=== PATIENT | male | born 1990 | race Caucasian/White ===

== ENCOUNTER → 2020-09-24 | Outpatient (CLI) | payer BC ==
[~2020-09-24] MED LIST: FEXO1TAB29 PO
== END | disposition home or self-care (01) ==
LOC: STAR 13:37
PROVIDERS: ATTEND Otolaryngology
DX: Z01.812 Encounter for preprocedural laboratory examination (principal); Z20.828 Contact with and (suspected) exposure to other viral communicable diseases; J32.4 Chronic pansinusitis
CPT/HCPCS: 36415; 87635

== ENCOUNTER 2020-09-29 08:05 | Day surgery (SDC) | payer BC ==
[~2020-09-29] VITALS: Ht 190.5 cm; Wt 128.0 kg
[~2020-09-29 08:05] MED LIST changes: +BACITRACIN 50,000 UNIT ONE; +BACITRACIN OINT 500U/GM, 15 GM ONE; +EPINEPHRINE 1 MG/ML, 1ML ONE; +EPINEPHRINE TOPICAL SOLN 1 MG/ML, 30ML ONE; +FLUORESCEIN SODIUM 500 MG/5 ML ONE; +LIDOCAINE/PF 1%, 30ML ONE; +OXYMETAZOLINE NASAL SPRAY 0.05%,30ML ONE
[2020-09-29] MEDS ORDERED: FENTANYL PF 250 MCG/5ML ONE ×2 (08:20→10:59)
[2020-09-29] MEDS ORDERED: MIDAZOLAM 1 MG/ML, 2ML ONE (08:20)
[2020-09-29] MEDS ORDERED: GLYCOPYRROLATE 0.2MG/1ML, 5ML ONE (08:23)
[2020-09-29] MEDS ORDERED: ROCURONIUM 10MG/ML,5ML ONE (08:23)
[2020-09-29] MEDS ORDERED: PROPOFOL 10 MG/ML, 20ML ONE (08:23)
[2020-09-29] MEDS ORDERED: NEOSTIGMINE 1 MG/ML, 10ML ONE (08:23)
[2020-09-29] MEDS ORDERED: CEFAZOLIN 1,000 MG ONE ×2 (08:23→10:56)
[2020-09-29 08:39] VITALS: BP 135/91
[2020-09-29] MEDS ORDERED: CHLORHEXIDINE 15 ML UDC ONE (08:45)
[2020-09-29] MEDS ORDERED: CHLORHEXIDINE 15 ML UDC MM ONE (09:00)
[2020-09-29] MEDS ORDERED: LIDOCAINE-MPF 1%, 2ML INFIL ONE (09:00)
[2020-09-29] MEDS ORDERED: LACTATED RINGERS 1,000 ML IV SCH (09:00)
[2020-09-29] MEDS ORDERED: HYDROmorphone 1 MG/ML, 1ML INJ IVPush PRN (10:30)
[2020-09-29] MEDS ORDERED: ACETAMINOPHEN 325 MG TABLET PO PRN (10:30)
[2020-09-29] MEDS ORDERED: FENTANYL PF 100 MCG/2ML IV PRN (10:30)
[2020-09-29] MEDS ORDERED: OXYcodone 5 MG/5 ML ORAL.SOL UDC PO PRN (10:30)
[2020-09-29] MEDS ORDERED: MEPERIDINE/PF 25MG/0.5ML IVPush PRN (10:30)
[2020-09-29] MEDS ORDERED: LABETALOL 5MG/ML, 20ML IV PRN (10:30)
[2020-09-29] MEDS ORDERED: HALOPERIDOL 5 MG/ML IV PRN (10:30)
[2020-09-29] MEDS ORDERED: morphine SULFATE 10 MG/ML, 1ML IVPush PRN (10:30)
[2020-09-29] MEDS ORDERED: PROMETHAZINE 25 MG/ML, 1ML IVPush PRN (10:30)
[2020-09-29] MEDS ORDERED: hydrALAzine 20 MG/ML, 1ML IV PRN (10:30)
[2020-09-29] MEDS ORDERED: DEXAMETHASONE 4 MG/ML, 1ML ONE (10:40)
[2020-09-29] MEDS ORDERED: ONDANSETRON 2MG/ML, 2ML ONE (10:40)
[2020-09-29] MEDS ORDERED: LIDOCAINE 1%-EPI 1:100K, 30ML INFIL ONE (11:00)
[2020-09-29] MEDS ORDERED: FENTANYL PF 100 MCG/2ML ONE (11:37)
[2020-09-29] MEDS ORDERED: BACITRACIN OINT 500U/GM, 15 GM TP ONE (11:40)
[2020-09-29] MEDS ORDERED: OXYcodone 5 MG/5 ML ORAL.SOL UDC ONE (12:58)
[2020-09-29] MEDS ORDERED: HYDROmorphone 1 MG/ML, 1ML INJ ONE (12:58)
[2020-09-29] MEDS ORDERED: ACETAMINOPHEN 650 MG/20.3 ML UDC ONE (12:59)
== END 2020-09-29 14:30 | disposition home or self-care (01) ==
LOC: OUT 08:05
PROVIDERS: ATTEND Otolaryngology
DX: J34.2 Deviated nasal septum (principal); J32.0 Chronic maxillary sinusitis; J31.0 Chronic rhinitis; F90.9 Attention-deficit hyperactivity disorder, unspecified type; Z79.899 Other long term (current) drug therapy; Z91.048 Other nonmedicinal substance allergy status; Z82.49 Family history of ischemic heart disease and other diseases of the circulatory system
CPT/HCPCS: 30520; 31253; 31256; 88304; 88311; J0171; J0690; J1100; J1170; J2250; J2405; J2704; J2710; J3010; J7120

== ENCOUNTER 2020-10-06 09:19 | Day surgery (SDC) | payer BC ==
[~2020-10-06] VITALS: Ht 190.5 cm; Wt 128.0 kg
[~2020-10-06 09:19] MED LIST changes: -BACITRACIN 50,000 UNIT ONE; -BACITRACIN OINT 500U/GM, 15 GM ONE; -EPINEPHRINE 1 MG/ML, 1ML ONE; -EPINEPHRINE TOPICAL SOLN 1 MG/ML, 30ML ONE; -FLUORESCEIN SODIUM 500 MG/5 ML ONE; -LIDOCAINE/PF 1%, 30ML ONE; -OXYMETAZOLINE NASAL SPRAY 0.05%,30ML ONE
[2020-10-06] MEDS ORDERED: CEPH-368 PO (09:36)
[2020-10-06] MEDS ORDERED: CHLORHEXIDINE 15 ML UDC ONE (11:27)
[2020-10-06] MEDS ORDERED: CHLORHEXIDINE 15 ML UDC MM ONE (11:30)
[2020-10-06] MEDS ORDERED: OXYMETAZOLINE NASAL SPRAY 0.05%, 15ML NAS ONE (12:57)
== END 2020-10-06 13:15 | disposition home or self-care (01) ==
LOC: OUT 09:19
PROVIDERS: ATTEND Otolaryngology
DX: J32.4 Chronic pansinusitis (principal); Z20.828 Contact with and (suspected) exposure to other viral communicable diseases
CPT/HCPCS: 87635